=== PATIENT | male | born 1950 | race Caucasian/White ===

== ENCOUNTER 2019-10-18 09:21 | Outpatient (CLI) | payer MEDICARE, MEDICAID, SELFPAY | END 2019-10-18 09:22 | disposition home or self-care (01) | DX: H90.3 Sensorineural hearing loss, bilateral (principal) | CPT/HCPCS: 92557; 92567 ==

== ENCOUNTER 2020-07-23 10:18 | Outpatient (CLI) | payer MEDICARE, MEDICAID, SELFPAY ==
--- NOTE | 2020-09-10 08:12 | PCAUD ---
Charges were entered on 09/09/2020 for this patient, but date of service was 07/23. Charges were not entered on the date of service due to an oversight. -Eladio Dudley, [facility]
== END 2020-07-23 10:19 | disposition home or self-care (01) ==
LOC: ANHBWCAUD 10:19
DX: H91.90 Unspecified hearing loss, unspecified ear (principal)
CPT/HCPCS: 92557; 92567

== ENCOUNTER 2021-03-09 12:57 | Outpatient (CLI) | payer MEDICARE, MEDICAID, SELFPAY | END 2021-03-09 12:58 | disposition home or self-care (01) | DX: H91.93 Unspecified hearing loss, bilateral (principal) | CPT/HCPCS: 99199 ==

== ENCOUNTER 2022-04-19 09:12 | Outpatient (CLI) | payer MEDICARE, MEDICAID, SELFPAY | END 2022-04-19 09:13 | disposition home or self-care (01) | LOC: ANHBWCAUD 09:13 | PROVIDERS: Visit Provider Family Medicine | DX: H90.3 Sensorineural hearing loss, bilateral (principal) | CPT/HCPCS: 92557; 92567 ==

== ENCOUNTER 2023-05-31 10:30 | Outpatient (CLI) | payer MEDICARE, MEDICAID, SELFPAY | END 2023-05-31 10:31 | disposition home or self-care (01) | DX: F72 Severe intellectual disabilities (principal); H90.3 Sensorineural hearing loss, bilateral | CPT/HCPCS: 92557; 92567 ==

== ENCOUNTER 2024-06-05 09:16 | Outpatient (CLI) | payer MEDICARE, SELFPAY | END 2024-06-05 09:17 | disposition home or self-care (01) | LOC: ANHBWCAUD 09:17 | PROVIDERS: Visit Provider Physician Assistant | DX: H90.3 Sensorineural hearing loss, bilateral (principal); H61.23 Impacted cerumen, bilateral | CPT/HCPCS: 92557; 92567 ==

== ENCOUNTER 2025-06-10 08:47 | Outpatient (CLI) | payer MEDICARE, MEDICAID, SELFPAY ==
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
--- OUTSIDE RECORDS SUMMARY | 2025-06-10 09:04 | XMS_ITS ---
Author Organization [facility] Care Team Providers Care Rough Rounder Machine Name Role Phone EMILIANOTONYRupal DRE Unavailable Unavailable Fahim, Magid Unavailable Unavailable Allergies and adverse reactions Code CodeSystem Substance Reaction Severity StartDate Concern Status 007879094 SNOMED CT Penicillins Unknown 02/10/2017 activ e 723 RXNORM Amoxicillin Unknown 02/10/2017 active Care Team Name Role Address Phone Organization Dates DRE IQBALI PCP [address] [place], [address], [facility] (Office): [facility] 01/25/2022 - 04/07/2022 Magid [place], [place] (Cell): [facility]) 01/25/2022 - 04/07/2022 Immunizations Immunization Status Vaccine Details Vaccine Code CodeSystem Date Notes SARS-COV-2 (COVID-19) completed SARS-COV-2 (COVID-19) vaccine, mRNA, spike protein, LNP, preservative free, 30 mcg/0.3mL dose Mfg: pfizer Step 2 of Multi-step with next step required 208 CVX created date: 2 administe red date: 1 SARS-COV-2 (COVID-19) completed SARS-COV-2 (COVID-19) vaccine, mRNA, spike protein, LNP, preservative free, 30 mcg/0.3mL dose Mfg: pfizer Step 1 of Multi-step with next step required 208 CVX created date: 2 administe red date: 1 TB 2 Step Mantoux Skin Test completed lotNumber: [id number] Mfg: house stock Given 0.1 ml Left Forearm intradermally created date: 7 consent date: 7 administe red date: 7 Educated by vinh hernandez on 02/26/2017 given by vinh mcgarry TB 2 Step Mantoux Skin Test completed lotNumber: [id number] expiry: 09/24/2017 Mfg: San[employer] Given 0.1 ml Left Forearm intradermally created date: 7 consent date: 7 administe red date: 7 Educated by Indu Rivas R.N. on 02/11/2017 Administered per Indu Rivas R.N. SARS-COV-2 Booster (COVID-19 Booster) completed SARS-COV-2 (COVID-19) vaccine, mRNA, spike protein, LNP, preservative free, 100 mcg/0.5mL dose or 50 mcg/0.25mL dose lotNumber: [id number] expiry: 03/03/2022 Mfg: pfizer Given 0.3 ml Right Deltoid intramuscularly 207 CVX created date: 2 consent date: 2 administe red date: 2 SARS-COV-2 Booster (COVID-19 Booster) completed SARS-COV-2 (COVID-19) vaccine, mRNA, spike protein, LNP, preservative free, 100 mcg/0.5mL dose or 50 mcg/0.25mL dose Mfg: pfizer 207 CVX created date: 2 administe red date: 1 Mental Status Section Date Assessment Total Score Description 04/07/2022 BIMS 08 moderate cognit dreek impairment CAM 0 No delirium ind icated PHQ-9 00 03/31/2022 BIMS 08 moderate cognit derek impairment CAM 0 No delirium ind icated PHQ-9 00 Insurance Providers Problems Problem # Description Date of onset Resolved Date Code CodeSystem Concern Status 1 DIFFICULTY IN WALKING, NOT ELSEWHERE CLASSIFIED [address] active 2 UNSTEADINESS ON FEET [address] active 3 WEAKNESS [address] active 4 AFTERCARE FOLLOWING JOINT REPLACEMENT SURGERY 2 01/25/[address] completed [address]OME[address] active 6 CHRONIC ATRIAL FIBRILLATION, UNSPECIFIED [address] active 7 ENCOUNTER FOR OTHER ORTHOPEDIC AFTERCARE [address] active 8 ESSENTIAL (PRIMARY) HYPERTENSION [address] active 9 MUSCLE WEAKNESS (GENERALIZED) [address] active 10 OBSTRUCTIVE SLEEP APNEA (ADULT) (PEDIATRIC) [address] active 11 OTHER ABNORMALITIES OF GAIT AND MOBILITY 2 01/26/[address] completed 12 PRESENCE OF RIGHT ARTIFICIAL HIP JOINT 2 01/25/[address] completed 13 SEVERE INTELLECTUAL DISABILITIES [address] active 14 TYPE 2 DIABETES MELLITUS WITHOUT COMPLICATIONS [address] active 15 UNSPECIFIED COMBINED SYSTOLIC (CONGESTIVE) AND DIASTOLIC (CONGESTIVE) HEART FAILURE [address] active 16 UNSPECIFIED FRACTURE OF RIGHT FEMUR, SUBSEQUENT ENCOUNTER FOR CLOSED FRACTURE WITH ROUTINE HEALING [address] active 17 UNSPECIFIED OSTEOARTHRITIS, UNSPECIFIED SITE [address] active 18 FRACTURE OF UNSPECIFIED PART OF NECK OF RIGHT FEMUR, INITIAL ENCOUNTER FOR CLOSED FRACTURE [address] active 19 ACUTE PROSTATITIS 7 01/25/[address] completed 20 CARDIOMEGALY 7 01/25/[address] completed 21 CHRONIC SYSTOLIC (CONGESTIVE) HEART FAILURE 7 01/25/[address] completed 22 MUSCLE WEAKNESS (GENERALIZED) 7 01/25/[address] completed 23 NONDISPLACED INTERTROCHANTERIC FRACTURE OF RIGHT FEMUR, SUBSEQUENT ENCOUNTER FOR CLOSED FRACTURE WITH ROUTINE HEALING 7 01/25/[address] completed 24 OBSTRUCTIVE SLEEP APNEA (ADULT) (PEDIATRIC) 7 01/25/[address] completed 25 OTHER LACK OF COORDINATION 7 01/25/[address] completed 26 SEVERE INTELLECTUAL DISABILITIES 7 01/25/[address] completed 27 TYPE 2 DIABETES MELLITUS WITHOUT COMPLICATIONS 7 01/25/[address] completed 28 UNSPECIFIED ATRIAL FIBRILLATION 7 01/25/[address] completed 29 UNSPECIFIED MYCOSIS 7 01/25/[address] completed 30 UNSPECIFIED OSTEOARTHRITIS, UNSPECIFIED SITE 7 01/25/[address] completed Reason for Referral No Reasons for Referral Entered Social History Social History Observation Description Start Date End Date Code Code System Current Smoking Status Tobacco smoking consumption unknown 537313894 SNOMED CT Sex Assigned At Male 1950 [address]-6 [facility] Gender Identity Sexual Orientation Vital Signs Code Code System Vitals Name Values and Units Timing Information 54821-3 LOINC Weight Vsvly=487.0 Units=Lbs 12/2021 36495-9 LOINC Pain Level Value=0.0 04/07/2022 9279-1 LOINC Respiratory Rate Value=20.0 Units=/m in 03/31/2022 8867-4 LOINC Heart rate Value=78.0 Units=/min 8462-4 LOINC Blood Pressure-Diastolic Value=72 Un its=mmHg 03/31/2022 8480-6 LOINC Blood Pressure-Systolic Opjvy=761 Un its=mmHg 03/31/2022 8310-5 LOINC Body Temperature Value=97.4 Units= F 03/31/2022 28346-3 LOINC O2 % BldC Oximetry Value=98.0 Units= % 03/20/2022 8302-2 LOINC Height Value=71.0 Units=Inches 01/25/2022
--- OUTSIDE RECORDS SUMMARY | 2025-06-10 09:04 | XMS_ITS | Clinical Summary ---
Author Organization [facility] Address [address] [place] [address] Phone Care Team Providers Care Unemployment Insurance Hearing Officer Name Role Phone Mc Tyler Primary Care Provider [phone] Maik Rodrigues MD Unavailable Allergies Active Allergy Reactions Criticality Noted Date Comments Amoxicillin Hives Medium 03/30/2017 Penicillins Hives Medium 03/30/2017 Medications metoprolol Succinate (TOPROL-XL) 25 MG TABLET SR 24 HR Take 25 mg by mouth daily. 6 Active Probiotic Product (ALIGN) 4 MG Capsule Take 4 mg by mouth daily. Active Aspirin 81 MG Tablet Take 81 mg by mouth daily. Active PRADAXA 150 MG Capsule Take 1 Cap by mouth 2 times daily. 180 Cap 1 7 Active Multiple Vitamins-Minera ls (MULTIVITAMIN & MINERAL PO) Take 1 Tab by mouth daily. Active bisacodyl EC (DULCOLAX) 5 MG Tablet Delayed Response Take as directed by office for colonoscopy prep 6 Tablet 2 Active diphenhydrAMINE (BENADRYL) 25 MG Capsule Take 25 mg by mouth every 6 hours as needed. Active aluminum & magnesium hydroxide-simet hicone (MAALOX, MYLANTA) 200-200-20 MG/5ML Suspension Take 20 mL by mouth every 6 hours as needed. Active acetaminophen (TYLENOL) 325 MG Tablet Take 325 mg by mouth every 4 hours as needed. Active Chest Congestion Relief 100 MG/5ML Liquid 5 Active Active Problems Problem Noted Date Diagnosed Date Prediabetes 06/21/2018 Other specified peripheral vascular diseases Allergic rhinitis due to allergen 06/13/2017 Primary hypertension 06/13/2017 Chronic atrial fibrillation 02/05/2017 Chronic congestive heart failure 02/05/2017 Severe intellectual disability 02/05/2017 Chronic prostatitis 01/13/2017 H/O diabetes mellitus 12/08/2016 Obesity (BMI 30.0-34.9) 11/26/2015 OA (osteoarthritis) ASHLEY on CPAP Resolved Problems Problem Noted Date Diagnosed Date Resolved Date Intertrochanteric fracture o f right hip, closed, initial encounter 01/23/2022 12/08/2023 Closed right hip fracture, initial encounter 12/08/2023 Closed fracture of neck of femur 01/22/2022 12/11/2024 Lesion of left external ear 12/14/2021 04/10/2024 Overview (10/28/2022): Last Assessment & Plan: May restart Aspirin Continue wound care twice daily and Bandage overnight and as needed Follow up as needed Fracture of left hip 02/05/2017 017 UTI (urinary tract infection) 07/04/2016 12/08/2016 Encounters Date Type Department Care Team Description 04/25/2025 10:00 AM CDT Office Visit [facility] - Endocrinology - [place] [address] [place] [address] Maik Rodrigues MD Thyroiditis (Primary Dx) Discharge Disposition: Discharged to home or Selfcare 04/25/2025 Travel 04/18/2025 9:45 AM CDT Office Visit [facility] - Primary Care - [place] [address] [place] [address] Mc Tyler PAC Primary hypertension (Primary Dx); Chronic congestive heart failure, unspecified heart failure type (HCC); Chronic atrial fibrillation (HCC); Prediabetes; ASHLEY on CPAP; Severe intellectual disability; Encounter for screening for cardiovascular disorders Discharge Disposition: Discharged to home or Selfcare 04/18/2025 Telephone [facility] [address] [place] [phone] Mc Tyler PAC 04/18/2025 Travel 04/11/2025 Results Follow-Up [facility] - [place] [address] [address] Mc Tyler PAC CMP (COMPREHENSIVE METABOLIC PANEL), LIPID PANEL, CBC WITH AUTO DIFFERENTIAL, THYROID SCREEN WITH REFLEX 04/10/2025 9:30 AM CDT Lab [facility] - [place] [address] [place] [phone] Chronic congestive heart failure, unspecified heart failure type (HCC); Primary hypertension; Chronic atrial fibrillation (HCC); Encounter for lipid screening for cardiovascular disease Discharge Disposition: Discharged to home or Selfcare 04/10/2025 Travel from Last 3 Months Immunizations Immunization Administration Dates Next Due COVID-19, MRNA, LNP-S, BIVAL ENT , PFIZER, 30 MCG/0.3 ML (12+ Y/O) 06/16/2022 Covid-19, Mrna, Lnp-s, Pf, 1 00 Mcg Or 50 Mcg Dose (MODERNA) 03/01/2022,06/10/2021 Covid-19, Mrna, Lnp-s, Pf, 3 0 Mcg/0.3 Ml Dose (Pfizer) 06/10/2021,11/03/2020,10/13/2020 Influenza Vaccine greater than 3 yrs 05/29/2015, 06/04/2013 Influenza Vaccine, Quadrivalent, PF 05/06,05/29/2023,06/16/2022,2020,06/21/2018,06/14/2017 Influenza, Injectable, Mdck,quadrivalent,with Preservative 06/12/2019 Influenza, Quadrivalent, Adjuvanted 06/22/2020 Influenza, Seasonal, Injecta ble, Undefined 05/29/2015,05/27/2015,05/29/2014,2012,06/04/2013 Influenza, high-dose, trivalent, PF 06/02/2016 PUR FLU HIGH DOSE (FLUZONE) 06/02/2016 Pneumococcal Vaccine - 13 Valent 09/12/2011 Pneumococcal Vaccine Adult - 23 Valent 06/24/2021,09/04/2011 RSV, Recombinant, Protein Luther bunit Rsvpref, Adjuvant Recon (Arexvy) 10/12/2023 TB Skin Test 02/26/2017,02/11/2017,08/04/2013 TD VACCINE 07/05/2011 TDAP Vaccine 08/03/2018 Tuberculin Skin Test; Purifi ed Protein Derivative Solutiol 02/26/2017,02/11/2017 Zoster Vaccine Recombinant 08/07/2023,05/31/2023 Family History Relation Name Status Comments Father Other Mother Other Social History Tobacco Use Types Packs/Day Years Used Date Smoking Tobacco: Never Smokeless Tobacco: Never Tobacco Cessation:Counseling Given: Not Answered Alcohol Use Standard Drinks/Week Comments No 0 (1 standard drink = 0.6 oz pur e alcohol) [facility] Utilities Answer Date Recorded In the past 12 months has th e electric, gas, oil, or water company threatened to shut off services in your home? Patient declined 12/11/2024 Social Connection and Isolation Panel Answer Date Recorded In a typical week, how many times do you talk on the phone with family, friends, or neighbors? Patient declined 12/11/2024 How often do you get togethe r with friends or relatives? Patient declined 12/11/2024 How often do you attend mormonism or congregational serv ices? Patient declined 12/11/2024 Do you belong to any clubs o r organizations such as mormonism groups, unions, fraternal or athletic groups, or school groups? Patient declined 12/11/2024 How often do you attend meet ings of the clubs or organizations you belong to? Patient declined 12/11/2024 Are you , , di vorced, , never , or living with a partner? Patient declined 12/11/2024 AUDIT-C Answer Date Recorded Q1: How often do you have a drink containing alc ohol? Patient declined 12/11/2024 Q2: How many drinks containi ng alcohol do you have on a typical day when you are drinking? Patient declined 12/11/2024 Q3: How often do you have si x or more drinks on one occasion? Patient declined 12/11/2024 Overall Financial Resource Strain (CARDIA) Answe r Date Recorded How hard is it for you to pa y for the very basics like food, housing, medical care, and heating? Patient declined 12/11/2024 [facility] - Occupational Stress Questionnaire Answer Date Recorded Do you feel stress - tense, restless, nervous, or anxious, or unable to sleep at night because your mind is troubled all the time - these days? Patient declined 12/11/2024 Exercise Vital Sign Answer Date Recorde d On average, how many days pe r week do you engage in moderate to strenuous exercise (like a brisk walk)? Patient declined On average, how many minutes do you engage in exercise at this level? Patient declined 12/11/2024 Hunger Vital Sign Answer Date Recorded Within the past 12 months, y ou worried that your food would run out before you got the money to buy more. Patient declined Within the past 12 months, t he food you bought just didn't last and you didn't have money to get more. Patient declined 05/2025 PRAPARE - Transportation Answer Date Re corded In the past 12 months, has l ack of transportation kept you from medical appointments or from getting medications? Patient declined 12/11/2024 In the past 12 months, has l ack of transportation kept you from meetings, work, or from getting things needed for daily living? Patient declined 12/11/2024 Housing Stability Vital Sign Answer Aydin e Recorded In the last 12 months, was t here a time when you were not able to pay the mortgage or rent on time? Patient declined 12/12/19 25 In the past 12 months, how m any times have you moved where you were living? 0 12/11/2024 At any time in the past 12 m [facility], were you homeless or living in a penitentiary (including now)? Patient declined 12/11/2024 Sexually Active Control Partners Comments Never Sex and Gender Information Value Date Recorded Sex Assigned at Not on file Legal Sex Male 11:06 PM CDT Gender Identity Not on file Sexual Orientation Not on file Last Filed Vital Signs Vital Sign Reading Time Taken Comments Blood Pressure 120/78 04/25/2025 9:46 AM CDT Pulse 109 04/25/2025 9:46 AM CDT Temperature 36.6 C (97.9 F) 04/25/2025 9:46 AM CDT Respiratory Rate 22 04/25/2025 9:46 AM CDT Oxygen Saturation 98% 04/25/2025 9:46 AM CDT Inhaled Oxygen Concentration - - Weight 93.3 kg (205 lb 9.6 oz) 04/25/2025 9:46 A M CDT Height 170.2 cm (5' 7) 12/11/2024 10:58 AM CDT Body Mass Index 32.2 12/11/2024 10:58 AM CDT Plan of Treatment Upcoming Encounters Date Type Department Care Team (Late st Contact Info) Description 10/02/2025 8:40 AM DOG RACES MANAGER Lab [facility] Primary [facility] [place] [address] [place] [phone] 10/22/2025 8:45 AM DOG RACES MANAGER Office Visit [facility] Primary Care - [place] [address] [place] [phone] Mc Tyler PAC [address] [place] [address] 04/28/2026 10:00 AM CDT Office Visit [facility] - Endocrinology - [place] [address] [place] [phone] Maik Rodrigues MD [address] [phone] Health Maintenance Due Date Last Done Comments Hepatitis C Virus (HCV) Screening 1950 Medicare Initial AWV G0438 09/04/1978 Cologuard 1995 Immunochemical Fecal Occult Blood 1995 Influenza Immunization (#1) 05/05/202505/06, 05/29/2023, 06/16/2022, Additional history exists SARS-COV-2 Immunization ( season) 2025 08/07/2023, 06/16/2022, 04/15/2022, Additional history exists Td Immunization Every 10 Years (Adults With 1 Tdap) 08/03/2028 08/03/2018, 07/05/2011 Colonoscopy 08/09/2029 08/09/2022, 11/03, 11/26/2014 Colorectal Cancer Screening 08/09/2029 Pneumococcal Immunization (50+ years) Completed 06/24/2021, 09/12/2011, 09/04/2011 Pneumococcal Immunization Combined Discontinued 06/24/2021, 09/12/2011, 09/04/2011 Zoster Immunization Completed 08/07/2023, Respiratory Syncytial Virus (RSV) Immunization (Adult) Completed 10/12/2023 Hepatitis B Immunization Discontinued Human Papillomavirus (HPV) Immunization Aged Out No longer eligible based on patient's age to complete this topic Meningococcal Immunization (ACWY) Aged Out No longer eligible based on patient's age to complete this topic Rotavirus Immunization Aged Out No lo nger eligible based on patient's age to complete this topic Medical Devices Implanted Type Area Receiving Associate Store Device Identifier Shelf Expiration Date Model / Serial / Lot Nail Troch Gamma 3 125 Deg [id number] Ti - [id number] Implanted:Qty: 1 on 02/07/2017 by Deric Solis MD at [facility] IMPLANT Left: Hip CONNOR / TRAUMA 01/01/2022 [id number] S / / [id number] Scrw Lag Gamma 3 10.5mm Thrd 95mm Ti - [id number] Implanted:Qty: 1 on 02/07/2017 by Deric Solis MD at [facility] IMPLANT Left: Hip CONNOR / TRAUMA 10/04/2021 [id number] S / / [id number] Scr Flaco T2 Ft 5x37.5mm Ti Strl - [id number] Implanted:Qty: 1 on 02/07/2017 by Deric Solis MD at [facility] IMPLANT Left: Hip CONNOR / ORTHOPAEDICS 09/03/2021 [id number] S / / [id number] Nail 11mm 180mm Hip Trochanteric Gamma3 Im 125d Kit Ti Strl - [id number] Implanted:Qty: 1 on 01/23/2022 by Deric Solis MD at [facility] IMPLANT Right: Leg Connor Trauma 10/04/2026 [id number] S / [id number] / [id number] Screw Bone 10.5mm 95mm Gamma3 Ti Hip Trochanteric Lag Strl - [id number] Implanted:Qty: 1 on 01/23/2022 by Deric Solis MD at [facility] IMPLANT Right: Leg [place] Tra[employer] 03/03/2026 [id number] S / [id number] / [id number] Screw Bone 5mm 37.5mm T2 Ti Fthrd Femur Hum Tibia Prox Lock Strl Im Nail Sys - [id number] Implanted:Qty: 1 on 01/23/2022 by Deric Solis MD at [facility] IMPLANT Right: Leg [place] Orthopedic 06/03/2025 [id number] S / [id number] / [id number] Procedures Procedure Name Priority Date/Time Associated Diagnosis Comments THYROID SCREEN WITH REFLEX Routine 04/10/2025 9:33 AM CDT Primary hypertension CBC WITH AUTO DIFFERENTIAL Routine 04/10/2025 9:33 AM CDT Chronic congestive heart failure, unspecified heart failure type (HCC) Primary hypertension Chronic atrial fibrillation (HCC) LIPID PANEL Routine 04/10/2025 9:33 AM CDT Encounter for lipid screening for cardiovascular disease THYROID SCREEN WITH REFLEX Routine 04/10/2025 9:33 AM CDT Primary hypertension CMP (COMPREHENSIVE METABOLIC PANEL) Routine 04/10/2025 9:33 AM CDT Chronic congestive heart failure, unspecified heart failure type (HCC) Primary hypertension Chronic atrial fibrillation (HCC) COMPLETE BLOOD COUNT (CBC) WITH DIFF Routine 04/10/2025 9:33 AM CDT Chronic congestive heart failure, unspecified heart failure type (HCC) Primary hypertension Chronic atrial fibrillation (HCC) HM COLONOSCOPY Routine 11/26/2014 from Last 3 Months or Most Recently Relevant to Health Maintenance Results * THYROID SCREEN WITH REFLEX (04/10/2025 9:33 AM CDT) Pathologist [facility] TSH 0.497 0.300 - 5.000 mIU/L 04/10/2025 2:25 PM CDT [facility] Blood Venipuncture / Unknown 04/10/2025 9:33 AM CDT 04/10/2025 9:33 AM CDT us Mc Tyler PAC CHEMISTRY ORDERABLES Final R esult [facility] [address] [place] [address] * (ABNORMAL) CBC WITH AUTO DIFFERENTIAL (04/10/2025 9:33 AM CDT) [facility] WBC 5.67 4.00 - 12.00 10(3)/mcL 04/10/2025 1:13 PM CDT [facility] RBC 4.61 4.40 - 5.80 10(6)/mcL 04/10/2025 1:13 PM CDT [facility] HEMOGLOBIN (HGB) 14.7 13.0 - 16.5 g/dL 04/10/2025 1:13 PM CDT [facility] HEMATOCRIT (HCT) 45.0 38.0 - 50.0 % 04/10/2025 1:13 PM CDT [facility] MCV 97.6(H) 82.0 - 96.0 fL 04/10/2025 1:13 PM CDT [facility] MCH 31.9 26.0 - 32.0 pg 04/10/2025 1:13 PM CDT [facility] MCHC 32.7 31.0 - 36.0 g/dL 04/10/2025 1:13 PM CDT [facility] PLATELET COUNT 147 140 - 440 10(3)/mcL 04/10/2025 1:13 PM CDT [facility] RDW 12.8 11.8 - 15.5 % 04/10/2025 1:13 PM CDT [facility] MPV 11.6 8.0 - 12.6 fL 04/10/2025 1:13 PM CDT [facility] NEUTROPHILS 65.9 40.0 - 68.0 % 04/10/2025 1:13 PM CDT [facility] LYMPHOCYTES 18.9(L) 19.0 - 49.0 % 04/10/2025 1:13 PM CDT [facility] MONOCYTES 11.3 3.0 - 13.0 % 04/10/2025 1:13 PM CDT [facility] EOSINOPHILS 3.0 0.0 - 8.0 % 04/10/2025 1:13 PM CDT [facility] BASOPHILS 0.4 0.0 - 1.0 % 04/10/2025 1:13 PM CDT [facility] IMMATURE GRANULOCYTE 0.5(H) 0.0 - 0.4 % 04/10/2025 1:13 PM CDT [facility] Comment:Immature Granulocyte s includes Metamyelocytes, Myelocytes, and Promyelocytes. ABSOLUTE NEUTROPHILS 3.74 1.40 - 5.30 10(3)/mcL 04/10/2025 1:13 PM CDT [facility] ABSOLUTE LYMPHOCYTES 1.07 0.90 - 3.30 10(3)/mcL 04/10/2025 1:13 PM CDT [facility] ABSOLUTE MONOCYTES 0.64 0.10 - 0.90 10(3)/mcL 04/10/2025 1:13 PM CDT [facility] ABSOLUTE EOSINOPHIL 0.17 0.00 - 0.50 10(3)/mcL 04/10/2025 1:13 PM CDT [facility] ABSOLUTE BASOPHILS 0.02 0.00 - 0.10 10(3)/mcL 04/10/2025 1:13 PM CDT [facility] ABSOLUTE IMMATURE GRANULOCYTE 0.03 0.00 - 0.03 10 (3) mcL. 04/10/2025 1:13 PM CDT [facility] NRBC PER 100 WBC 0 04/10/20 1:13 PM CDT [facility] Blood Venipuncture / Unknown 04/10/2025 9:33 AM CDT 04/10/2025 9:33 AM CDT us Mc Tyler PAC HEMATOLOGY ORDERABLES Final Result Performing Organization Address City/[facility]/ZIP Co de Phone Number [facility] [address] [place] [address] * LIPID PANEL (04/10/2025 9:33 AM CDT) CHOLESTEROL 108 <200 mg/dL 04/10/2025 1:45 PM CDT [facility] TRIGLYCERIDES 53 <150 mg/dL 04/10/2025 1:45 PM CDT [facility] HDL CHOLESTEROL 41 >40 mg/dL 1:45 PM CDT [facility] LDL 56 <130 mg/dL 04/10/2025 1:45 PM CDT [facility] VLDL 11 10 - 50 mg/dL 04/10/2025 1:45 PM CDT [facility] CHOL/HDL RATIO 2.6 0.0 - 4.4 04/10/2025 1:45 PM CDT [facility] NON-HDL CHOLESTEROL 67 <130 mg/dL 04/10/2025 1:45 PM CDT [facility] IS THE PATIENT REQUIRED TO BE FASTING? Yes 04/10/2025 1:45 PM CDT [facility] HAS THE PATIENT BEEN FASTING? Yes 04/10/2025 1:45 PM CDT [facility] Blood Venipuncture / Unknown 04/10/2025 9:33 AM CDT 04/10/2025 9:33 AM CDT us Mc Tyler PAC CHEMISTRY ORDERABLES Final R esult Performing Organization Address City/[facility]/ZIP Co de Phone Number [facility] [address] [place] [address] * (ABNORMAL) CMP (COMPREHENSIVE METABOLIC PANEL) (04/10/2025 9:33 AM CDT) SODIUM 142 136 - 145 mmol/L 04/10/2025 1:45 PM CDT [facility] POTASSIUM 4.5 3.5 - 5.1 mmol/L 04/10/2025 1:45 PM CDT [facility] CHLORIDE 109(H) 98 - 107 mmol/L 04/10/2025 1:45 PM CDT [facility] CO2, VENOUS 26 22 - 30 mmol/L 04/10/2025 1:45 PM CDT [facility] ANION GAP 11.5 <18.0 mmol/L 04/10/2025 1:45 PM CDT [facility] GLUCOSE 90 70 - 99 mg/dL 04/10/2025 1:45 PM CDT [facility] BUN 20 8 - 26 mg/dL 04/10/2025 1:45 PM CDT [facility] CREATININE, BLOOD 1.18 0.70 - 1.30 mg/dL 04/10/2025 1:45 PM CDT [facility] BUN/CREATININE RATIO 17 12 - 20 ratio 04/10/2025 1:45 PM CDT [facility] TOTAL PROTEIN 7.4 6.0 - 8.0 g/dL 04/10/2025 1:45 PM CDT [facility] ALBUMIN 3.9 3.5 - 5.0 g/dL 04/10/2025 1:45 PM CDT [facility] A/G RATIO 1.1 1.0 - 2.2 04/10/2025 1:45 PM CDT [facility] CALCIUM 8.9 8.7 - 10.5 mg/dL 04/10/2025 1:45 PM CDT [facility] T BILI 0.8 0.2 - 1.2 mg/dL 04/10/2025 1:45 PM CDT [facility] SGOT (AST) 23 <43 U/L 04/10/2025 1:45 PM CDT [facility] SGPT (ALT) 12 <56 U/L 04/10/2025 1:45 PM CDT [facility] ALKALINE PHOSPHATASE 62 40 - 150 U/L 04/10/2025 1:45 PM CDT [facility] IS THE PATIENT REQUIRED TO BE FASTING? Yes 04/10/2025 1:45 PM CDT [facility] HAS THE PATIENT BEEN FASTING? Yes 04/10/2025 1:45 PM CDT [facility] GFR, ESTIMATED >60 >=60 04/10/2025 1:45 PM CDT [facility] Comment: Creatinine Clearance is the preferred criteria for selecting drug dose adjustments in renally impaired patients. The GFR is provided as additional pertinent clinical information. GFR is reported in mL/min/1.73 sq m. Calculation based on the Chronic Kidney Disease Epidemiology Collaboration (CKD- EPI) equation refit without adjustment for race. GFR, EST. >60 >=60 025 1:45 PM CDT [facility] GFR, EST. 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 PRE-ARREST: Use entire range of life support measures including intubation and mechanical ventilation in the ICU setting as necessary. Question Answer Comments Physician documentation made in notes? Yes * Full Code Date Activated Date Inactivated Comments 01/23/2022 9:35 AM 01/23/2022 9:37 AM CPR-Full Lan atment: FULL ARREST: Attempt Resuscitation/CPR wit intubation and mechanical ventilation. PRE-ARREST: Use entire range of life support measures to stabilize the patient. * No CPR-Comfort Focused Treatment Date Activated Date Inactivated Comments 01/23/2022 9:31 AM 01/23/2022 9:34 AM No CPR - Com fort-Focused Treatment: FULL ARREST: Do Not Attempt Resuscitation. PRE-ARREST: Goal is to maximize comfort through symptom management and allow for a natural . Hospitalization is not preferred unless comfort can't be established elsewhere. Question Answer Comments Physician documentation made in notes? Yes * Full Code Date Activated Date Inactivated Comments 01/22/2022 5:09 PM 01/23/2022 9:31 AM CPR-Full Lan atment: FULL ARREST: Attempt Resuscitation/CPR wit intubation and mechanical ventilation. PRE-ARREST: Use entire range of life support measures to stabilize the patient. * Full Code Date Activated Date Inactivated Comments 04/03/2017 7:48 AM 08/03/2018 11:39 AM Care Teams Unemployment Insurance Hearing Officer Relationship Specialty Start Date End Date Mc Tyler, PAC [address] [place] [address] PCP - General Physician Technology Solutions Architect 12/23/22 Maik Rodrigues MD [address] [phone] Consulting Physician Endocrinology 12/29/22
--- OUTSIDE RECORDS SUMMARY | 2025-06-10 09:04 | XMS_ITS ---
Author Organization [facility] Care Team Providers Care Claims Examiner Name Role Phone EMILIANOTONYRupal DRE Unavailable Unavailable Fahim, Magid Unavailable Unavailable Allergies and adverse reactions Code CodeSystem Substance Reaction Severity StartDate Concern Status 132942903 SNOMED CT Penicillins Unknown 02/10/2017 activ e 723 RXNORM Amoxicillin Unknown 02/10/2017 active Care Team Name Role Address Phone Organization Dates DRE IQ[facility]I PCP [address] [place], [address], [facility] (Office): [facility] 01/25/2022 - 04/07/2022 Magid [place], [place] (Cell): [facility] 01/25/2022 - 04/07/2022 Immunizations Immunization Status Vaccine [...] 2 Step Mantoux Skin Test completed lotNumber: [id number] Mfg: house stock Given 0.1 ml Left Forearm intradermally created date: 7 consent date: 7 administe red date: 7 Educated by vinh hernandez on 02/26/2017 given by vinh mcgarry TB 2 Step Mantoux Skin Test completed lotNumber: [id number] expiry: 09/24/2017 Mfg: [employer] Given 0.1 ml Left Forearm intradermally created date: 7 consent date: 7 administe red date: 7 Educated by Indu Rivas R.N. on 02/11/2017 Administered per Indu Rivas R.N. SARS-COV-2 Booster (COVID-19 Booster) completed SARS-COV-2 (COVID-19) vaccine, mRNA, spike protein, LNP, preservative free, 100 mcg/0.5mL dose or 50 mcg/0.25mL dose lotNumber: [id number] expiry: 03/03/2022 Mfg: pfizer Given 0.3 ml [...] Score Description 04/07/2022 BIMS 08 moderate cognit derek impairment CAM 0 No delirium ind icated PHQ-9 00 03/31/2022 BIMS 08 moderate cognit derek impairment CAM 0 No delirium ind icated PHQ-9 00 Insurance Providers Problems Problem # Description Date of onset Resolved Date Code CodeSystem Concern Status 1 DIFFICULTY IN WALKING, NOT ELSEWHERE CLASSIFIED [address] active 2 UNSTEADINESS ON FEET [address] active 3 WEAKNESS [address] active 4 AFTERCARE FOLLOWING JOINT REPLACEMENT SURGERY 2 01/25/[address] completed 5 [address]OME[address] active 6 CHRONIC ATRIAL FIBRILLATION, UNSPECIFIED [address] active 7 ENCOUNTER FOR OTHER ORTHOPEDIC AFTERCARE [address] active 8 ESSENTIAL (PRIMARY) HYPERTENSION [address] active 9 MUSCLE WEAKNESS (GENERALIZED) [address] active 10 OBSTRUCTIVE SLEEP APNEA (ADULT) (PEDIATRIC) [address] active 11 OTHER ABNORMALITIES OF GAIT AND MOBILITY 2 01/26/[address] completed 12 PRESENCE OF RIGHT ARTIFICIAL HIP JOINT 2 01/25/[address] completed 13 SEVERE INTELLECTUAL DISABILITIES [address] active 14 TYPE 2 DIABETES MELLITUS WITHOUT COMPLICATIONS [address] active 15 UNSPECIFIED COMBINED SYSTOLIC (CONGESTIVE) AND DIASTOLIC (CONGESTIVE) HEART FAILURE [address] active 16 UNSPECIFIED FRACTURE OF RIGHT FEMUR, SUBSEQUENT ENCOUNTER FOR CLOSED FRACTURE WITH ROUTINE HEALING [address] active 17 UNSPECIFIED OSTEOARTHRITIS, UNSPECIFIED SITE [address] active 18 FRACTURE OF UNSPECIFIED PART OF NECK OF RIGHT FEMUR, INITIAL ENCOUNTER FOR CLOSED FRACTURE [address] active 19 ACUTE PROSTATITIS 7 01/25/[address] completed 20 CARDIOMEGALY 7 01/25/[address] completed 21 CHRONIC SYSTOLIC (CONGESTIVE) HEART FAILURE 7 01/25/[address] completed 22 MUSCLE WEAKNESS (GENERALIZED) 7 01/25/[address] completed 23 NONDISPLACED INTERTROCHANTERIC FRACTURE OF RIGHT FEMUR, SUBSEQUENT ENCOUNTER FOR CLOSED FRACTURE WITH ROUTINE HEALING 7 01/25/[address] completed 24 OBSTRUCTIVE SLEEP APNEA (ADULT) (PEDIATRIC) 7 01/25/[address] completed 25 OTHER LACK OF COORDINATION 7 01/25/[address] completed 26 SEVERE INTELLECTUAL DISABILITIES 7 01/25/[address] completed 27 TYPE 2 DIABETES MELLITUS WITHOUT COMPLICATIONS 7 01/25/[address] completed 28 UNSPECIFIED ATRIAL FIBRILLATION 7 01/25/[address] completed 29 UNSPECIFIED MYCOSIS 7 01/25/[address] completed 30 UNSPECIFIED OSTEOARTHRITIS, UNSPECIFIED SITE 7 01/25/[address] completed Reason for Referral No Reasons for Referral Entered Social History Social History Observation Description Start Date End Date Code Code System Current Smoking Status Tobacco smoking consumption unknown 156853824 SNOMED CT Sex Assigned At Male 1950 [address]-1 [facility] Gender Identity Sexual Orientation Vital Signs Code Code System Vitals Name Values and Units Timing Information 90482-2 LOINC Weight Cmezw=493.0 Units=Lbs 12/2021 60234-3 LOINC Pain Level Value=0.0 04/07/2022 9279-1 LOINC Respiratory Rate Value=20.0 Units=/m in 03/31/2022 8867-4 LOINC Heart rate Value=78.0 Units=/min 8462-4 LOINC Blood Pressure-Diastolic Value=72 Un its=mmHg 03/31/2022 8480-6 LOINC Blood Pressure-Systolic Fgmfa=579 Un its=mmHg 03/31/2022 8310-5 LOINC Body Temperature Value=97.4 Units= F 03/31/2022 25500-1 LOINC O2 % BldC Oximetry Value=98.0 Units= % 03/20/2022 8302-2 LOINC Height Value=71.0 Units=Inches 01/25/2022
--- OUTSIDE RECORDS SUMMARY | 2025-06-10 09:04 | XMS_ITS | Clinical Summary ---
Author Organization [facility] Address [address] [place] [address] Care Team Providers Care Carton Filler Name Role Phone Ginette Eduardo MD Primary Care Provider [phone] Allergies Active Allergy Reactions Criticality Noted Date Comments Amoxicillin Unknown Penicillins Unknown Medications Bifidobacterium infantis (Align) 4 mg capsule Take 1 capsule (4 mg total) by mouth daily Active metoprolol XL (TOPROL-XL) 25 mg extended release tablet Take 1 tablet (25 mg total) by mouth daily 05/22/20 20 Active dabigatran (PRADAXA) 150 mg capsule Take 1 capsule (150 mg total) by mouth 2 (two) times a day 10/26/19 17 Active multivitamin with minerals tablet Take 1 tablet by mouth daily Active bisacodyl EC (DULCOLAX EC) 5 mg EC tablet Take as directed by office for colonoscopy prep 04/11/20 22 Active acetaminophen (TYLENOL) 325 mg tablet Take 2 tablets (650 mg total) by mouth every 4 (four) hours as needed for headaches Active mineral oil/hydrophil petrolat (AQUAPHOR TOP) Apply topically as needed Active miscellaneous medical supply misc daily Bob Hose Activ e simethicone (MYLICON) 125 mg chewable tablet Take 1 tablet (125 mg total) by mouth every 6 (six) hours as needed for flatulence Active diphenhydrAMINE (BENADRYL) 25 mg capsule Take 1 tablet/capsule (25 mg total) by mouth every 6 (six) hours as needed for itching Active guaiFENesin (ROBITUSSIN) syrup 100 mg/5 mL Take by mouth 3 (three) times a day as needed for cough Active bismuth subsalicylate (PEPTO-BISMOL) suspension Take by mouth every 6 (six) hours as needed for indigestion Active bisacodyL (FLEET-BISACODYL) 10 mg/30 mL enema as needed for constipation Active aspirin 81 mg chewable tablet Take 1 tablet (81 mg total) by mouth daily 30 tablet 11 08/12/20 22 Active multivitamin tablet 05/22/20 23 Active sodium chloride 0.9% 0.9 % irrigation 02/25/20 23 Active Active Problems Problem Noted Date Diagnosed Date OA (osteoarthritis) 05/29/2023 ASHLEY on CPAP 05/29/2023 Intertrochanteric fracture o f right hip, closed, initial encounter 01/22/2022 Impacted cerumen of left ear 12/15/2021 Assessment & Plan (12/15/2021 8:23 AM CDT): Cleanse with hydrogen peroxide and then Apply Aquaphor ointment to outer portion of the Left ear four times daily Avoid trauma to ear Follow up in 6-8 weeks to recheck, consider biopsy if not completely healed Lesion of left external ear 12/14/2021 Assessment & Plan (03/15/2023 11:40 AM CDT): Wound to ear healing well, much improved, continue to cover this area of ear to prevent digital trauma Assessment & Plan (11/30/2022 5:12 PM CDT): Prescription medications sent to Pharmacy today: Start Levaquin daily for 14 days Follow up in 6-8 weeks Keep ointment over wound site and keep covered at all times to prevent picking Assessment & Plan (08/12/2022 8:25 AM TERRA COTTA ROOFER HELPER): May restart Aspirin Continue wound care twice daily and Bandage overnight and as needed Follow up as needed Assessment & Plan (08/02/2022 2:23 PM TERRA COTTA ROOFER HELPER): Levaquin 500 mg daily with a meal Continue to hold Aspirin Continue to cleanse ear with soap and water and then apply Aquaphor ointment and Bandage twice daily Follow up in one week to recheck Assessment & Plan (07/25/2022 10:50 AM TERRA COTTA ROOFER HELPER): Continue to cleanse the area and removed debris and apply Aquaphor ointment twice daily Keep covered to prevent picking Follow up for suture removal in one week Finish oral antibiotics Assessment & Plan (06/24/2022 9:44 AM CDT): Excision of Left ear lesion with Frozen section and graft repair Risks and complications: Anesthesia, bleeding, infection, benign versus malignant pathology, recurrence of lesion, injury to arteries, nerves and veins, scarring and need for further treatment Assessment & Plan (05/23/2022 10:44 AM CDT): Cleanse ear twice daily with soap and water and alcohol Levaquin with a meal daily Follow up in 3 weeks, if not completely healed will recommend biopsy Assessment & Plan (12/14/2021 10:51 AM CDT): Cleanse with hydrogen peroxide and then Apply Aquaphor ointment to outer portion of the Left ear four times daily Avoid trauma to ear Follow up in 6-8 weeks to recheck, consider biopsy if not completely healed Prediabetes 06/21/2018 Other specified peripheral vascular diseases Allergic rhinitis due to allergen 06/13/2017 Primary hypertension 06/13/2017 Chronic atrial fibrillation 02/05/2017 Chronic congestive heart failure 02/05/2017 Severe intellectual disability 02/05/2017 Chronic prostatitis 01/13/2017 Obesity (BMI 30.0-34.9) 11/26/2015 Surgical History Surgery Date Site/Laterality Comments HIP FRACTURE SURGERY Right HIP FRACTURE SURGERY Left Medical History Medical History Date Comments Sleep apnea Mentally disabled Cardiomyopathy Osteoarthritis Arrhythmia atrial fibrillat ion Social History Tobacco Use Types Packs/Day Years Used Date Smoking Tobacco: Never Smokeless Tobacco: Never Tobacco Cessation:Counseling Given: Not Answered AUDIT-C Answer Date Recorded Q1: How often do you have a drink containing alc ohol? Never 07/08/2022 Average Number of Drinks Not on file 022 Frequency of Binge Drinking Not on file 12/2021 Sex and Gender Information Value Date Recorded Sex Assigned at Not on file Legal Sex Male 6:12 PM TERRA COTTA ROOFER HELPER Gender Identity Not on file Sexual Orientation Not on file Obstetrics History Last Filed Vital Signs Vital Sign Reading Time Taken Comments Blood Pressure 114/82 07/25/2024 9:30 AM TERRA COTTA ROOFER HELPER Pulse 82 07/25/2024 9:30 AM TERRA COTTA ROOFER HELPER Temperature 36.3 C (97.4 F) 03/15/2023 11:04 AM CDT Respiratory Rate 18 07/25/2024 9:30 AM TERRA COTTA ROOFER HELPER Oxygen Saturation 99% 03/15/2023 11:04 AM CDT Inhaled Oxygen Concentration - - Weight 83.9 kg (185 lb) 07/25/2024 9:30 AM TERRA COTTA ROOFER HELPER Height 180.3 cm (5' 11) 07/25/2024 9:30 AM TERRA COTTA ROOFER HELPER Body Mass Index 25.8 07/25/2024 9:30 AM TERRA COTTA ROOFER HELPER Plan of Treatment Health Maintenance Due Date Last Done Comments Colon Cancer Screening-Colonoscopy 1950 Depression Screening 1950 Fall Risk Assessment 1950 Hepatitis C Screening 1950 Hepatitis B Screening 1968 Zoster Vaccine (1 of 2) 2000 Well Visit 65+ 2015 Covid-19 Vaccine (2024-10 6 season) 2025 03/01/2022, 06/10/2021, 06/10/2021, Additional history exists Influenza Vaccine (#1) 2025 , 05/29/2023, 06/16/2022, Additional history exists DTaP/Tdap/Td Vaccine (2 - Td or Tdap) 08/03/2028 08/03/2018, 07/05/2011 Pneumococcal vaccine 65+ Completed 021, 09/12/2011, 09/04/2011 Insurance IDPA MEDICARE MEDICARE COMMERCIAL GENERIC MEDICARE IDPA Advance Directives For more information, please contact: [phone] Documents on File Type Date Recorded Patient Clinical Training Specialist Expl anation ADVANCE DIRECTIVE 07/14/2022 12:37 PM DNR Care Teams Carton Filler Relationship Specialty Start Date End Date Ginette Eduardo MD [address] [place] [address] PCP - General Family Medicine 07/25/24
--- OUTSIDE RECORDS SUMMARY | 2025-06-10 09:04 | XMS_ITS | Encounter Summary ---
Author Organization [facility] Address [address] [facility] [address] Phone Care Team Providers Care Stone Operator Name Role Phone Mc Tyler Primary Care Provider [phone] Maik Rodrigues MD Unavailable Encounter Details Date Type Department Care Team (Late st Contact Info) Description 04/11/2025 Results Follow-Up [facility] - Primary Care - [place] [address] [place] [address] Mc Tyler, PAC [address] [place] [address] CMP (COMPREHENSIVE METABOLIC PANEL), LIPID PANEL, CBC WITH AUTO DIFFERENTIAL, THYROID SCREEN WITH REFLEX Social History Tobacco Use Types Packs/Day Years Used Date Smoking Tobacco: Never Smokeless Tobacco: Never Alcohol Use Standard Drinks/Week Comments No 0 (1 standard drink = 0.6 oz pur e alcohol) [facility] Utilities Answer Date Recorded In the past 12 months has [employer], gas, oil, or water [employer] threatened to shut off services in your home? Patient declined 12/11/2024 Social Connection and Isolation Panel Answer Date Recorded In a typical week, how many times do you talk on the phone with family, friends, or neighbors? Patient declined 12/11/2024 How often do you get togethe r with friends or relatives? Patient declined 12/11/2024 How often do you attend mormon or baptism serv ices? Patient declined 12/11/2024 Do you belong to any clubs o r organizations such as mormon groups, unions, fraternal or athletic groups, or [...] medical care, and heating? Patient declined 12/11/2024 [facility] - Occupational Stress Questionnaire Answer Date Recorded [...] [facility] time in the [facility], were you homeless or living in a fdc (including now)? Patient declined 12/11/2024 Sexually Active Control Partners Comments Never Sex and Gender Information Value Date Recorded Sex Assigned at Not on file Legal Sex Male 11:06 PM CDT Gender Identity Not on file Sexual Orientation Not on file documented as of this encounter Plan of Treatment Upcoming Encounters Date Type Department Care Team (Late st Contact Info) Description 10/02/2025 8:40 AM TABLE AND DESK FINISHER Lab [facility] Primary Care - [place] [address] [place] [address] 10/22/2025 8:45 AM TABLE AND DESK FINISHER Office Visit [facility] - Primary Care - [place] [address] [place] [address] Mc Tyler PAC [address] [place] [address] 04/28/2026 10:00 AM CDT Office Visit [facility] Medical [facility] - Endocrinology - [place] [address] [place] [address] Maik Rodrigues MD [address] [address] documented as of this encounter Visit Diagnoses Not on filedocumented in this encounter Additional Health Concerns Infection Onset Date Last Indicated Resolved Time 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
== END 2025-06-10 08:48 | disposition home or self-care (01) ==
LOC: ANHBWCAUD 08:48
DX: H90.3 Sensorineural hearing loss, bilateral (principal)
CPT/HCPCS: 92557; 92567